=== PATIENT | male | born 1975 | race Caucasian/White ===

== ENCOUNTER 2016-05-12 | Emergency (ER) | payer OTHER, BC ==
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
== END 2016-05-12 16:22 | disposition home or self-care (01) ==
CPT/HCPCS: 99283

== ENCOUNTER → 2017-10-12 | Outpatient (CLI) | payer BC ==
--- NOTE | 2017-10-12 16:28 | CONS ---
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 The patient has loud snoring. He has witnessed apneas and feeling tired during the day. He has some degree of sleepiness with an Leighton score of 10. Does not fall asleep while driving. He does not fall asleep while doing his activities at work. He has never been involved in a motor vehicle accident because of feeling drowsy or sleepy. She goes to bed around 10:00 pm, wakes up 4:40 am in the morning. He averages around 5-6 hours of sleep. No naps during the day. Weight has been stable at 230 pounds. Sleeps on his side. Occasional nocturia. Occasional nocturnal heartburn. No family history of obstructive sleep apnea. PAST MEDICAL HISTORY: Negative. PAST SURGICAL HISTORY: Right ankle surgery and left shoulder surgery. DRUG ALLERGIES: PENICILLIN. OUTPATIENT MEDICATION LIST: Negative. SOCIAL HISTORY: Nonsmoker. Social alcohol drinker. No history of substance abuse. FAMILY HISTORY: Negative for sleep apnea. REVIEW OF SYSTEMS: 12-point review of system was done and positive findings are mentioned above in the history of present illness. No history of insomnia. No waking up choking or gasping for air. No grinding of the teeth. No sleepwalking or sleep talking. No restlessness in lower extremities. No anxiety or panic attacks. No depression. No claustrophobia. No sexual dysfunction. PHYSICAL EXAMINATION: His current vitals: Blood pressure is 129/71, pulse 67, respirations 16, temp 98.7, saturation 96% on room air. Neck size 18 and a quarter of an inch. Leighton score 10. BMI 34.8. General appearance: Calm, comfortable. Head is atraumatic, normocephalic. NECK: Supple. Mallampati class IV. There is no goiter or neck mass. LUNGS: Clear to auscultation. HEART: Sounds regular rate and rhythm. Normal S1, S2. No S3, S4. No murmurs. ABDOMEN: Soft, nontender. No organomegaly. EXTREMITIES: No edema. No cyanosis or clubbing. Skin is negative for any wounds or ulceration. IMPRESSION: 1. Obstructive sleep apnea clinically suspected, under investigation. The patient has loud snoring, witnessed apneas and increased fatigue and sleepiness with an Leighton score of 10. 2. Obesity BMI of 34.8. 3. Hypersomnia, Leighton score of 10. PLAN: 1. Encourage weight loss. 2. Avoid driving especially when feeling drowsy or sleepy. 3. Proceed with a home sleep study looking for any significant sleep breathing disorder/obstructive sleep apnea. 4. Will treat according to results of the sleep study. MMODL / IJN: [id number] /
== END | disposition home or self-care (01) ==
LOC: SLEEP 15:15
PROVIDERS: ATTEND Internal Medicine Critical Care Medicine
DX: G47.10 Hypersomnia, unspecified (principal); E66.9 Obesity, unspecified; R06.83 Snoring; R53.83 Other fatigue; Z88.0 Allergy status to penicillin; Z68.34 Body mass index [BMI] 34.0-34.9, adult
CPT/HCPCS: 99211

== ENCOUNTER → 2018-01-19 | Outpatient (CLI) | payer BC ==
--- NOTE | 2018-01-20 07:23 | US ---
EXAMINATION TYPE: US kidneys/renal and bladder DATE OF EXAM: 01/19/2018 COMPARISON: CT abdomen and pelvis September 19, 2015 CLINICAL HISTORY: R94.4 Abnormal Renal Function Tests. Microscopic hematuria EXAM MEASUREMENTS: Right Kidney: 11.4 x 5.5 x 5.2 cm Left Kidney: 11.3 x 5.8 x 4.9 cm Right Kidney: no evidence of hydronephrosis Left Kidney: no evidence of hydronephrosis Bladder: wnl Bilateral Jets seen: yes There is no evidence for hydronephrosis at this point in time. No nephrolithiasis is seen on images saved. No masses are identified. The urinary bladder is anechoic. Bilateral ureteral jets are seen . IMPRESSION: Unremarkable study. No significant finding is seen to account for patient's symptoms. If symptoms per sists further investigation with CT urogram may be warranted.
== END | disposition home or self-care (01) ==
LOC: RADUSWWP 15:52
PROVIDERS: ATTEND Internal Medicine
DX: R94.4 Abnormal results of kidney function studies (principal)
CPT/HCPCS: 76770

== ENCOUNTER 2021-09-27 08:54 | Emergency (ER) | payer BC ==
[2021-09-27 09:02] VITALS: TEMP 98.3
[2021-09-27] MEDS ORDERED: KETOROLAC 15 MG/ML 1 ML VIAL IM STA ×2 (09:12→10:38)
[2021-09-27] MEDS ORDERED: HYDROmorphone 1 MG/ML 1 ML SYRINGE IM STA ×2 (09:12→10:38)
--- NOTE | 2021-09-27 09:15 | ED ---
General Adult HPI - General Chief complaint: Back Pain/Injury Stated complaint: Back Pain Time Seen by Provider: 09/27/21 09:05 Source: patient, RN notes reviewed Mode of arrival: wheelchair Limitations: no limitations - History of Present Illness Initial comments: Patient is a pleasant 45-year-old male presenting to the emergency Department with low back discomfort. Patient does have some history of low back problems in the past and has seen chiropractor however does not have chronic significant pain. Patient was doing yard work 4 days ago with onset of symptoms. Patient saw urgent care 2 days ago and given muscle relaxer and steroids. No improvement of symptoms since that time. Patient did try some heat without improvement of symptoms following the onset. Patient bent over yesterday with increase discomfort. No abdominal pain. No loss of control of bowel or bladder. No leg weakness or paresthesia. Patient does have some discomfort that radiates to the left leg which has happened previously however previously was minimal. - Related Data Previous Rx's Medication Instructions Recorded HYDROcodone/APAP 5-325MG [[place] 1 tab PO Q4HR PRN 3 Days #18 tab 09/27/21 5-325] Allergies Allergy/AdvReac Type Severity Reaction Status Date / Time No Known Allergies Allergy Verified 09/27/21 09:00 Review of Systems ROS Statement: Those systems with pertinent positive or pertinent negative responses have been documented in the HPI. ROS Other: All systems not noted in ROS Statement are negative. Constitutional: Denies: fever Eyes: Denies: eye pain ENT: Denies: ear pain Respiratory: Denies: cough Cardiovascular: Denies: chest pain Endocrine: Denies: fatigue Gastrointestinal: Denies: abdominal pain Genitourinary: Denies: dysuria Musculoskeletal: Reports: as per HPI, back pain Skin: Denies: lesions Neurological: Denies: weakness, numbness, paresthesias Past Medical History Past Medical History: No Reported History History of Any Multi-Drug Resistant Organisms: None Reported Past Surgical History: Adenoidectomy Past Psychological History: No Psychological Hx Reported Smoking Status: Never smoker Past Alcohol Use History: Occasional Past Drug Use History: None Reported General Exam Limitations: no limitations General appearance: alert, in no apparent distress Head exam: Present: normocephalic Eye exam: Present: normal appearance Neck exam: Present: normal inspection Respiratory exam: Present: normal lung sounds bilaterally Cardiovascular Exam: Present: regular rate, normal rhythm Expanded Peripheral pulses: 2+: Posterior Tibialis (R), Posterior Tibialis (L), Dorsalis Pedis (R), Dorsalis Pedis (L) GI/Abdominal exam: Present: soft. Absent: distended, tenderness Extremities exam: Present: normal inspection Neurological exam: Present: alert. Absent: motor sensory deficit Expanded Sensory exam: Lower Extremity Light Touch: Normal Motor strength exam: RLE: 5, LLE: 5 Psychiatric exam: Present: normal affect, normal mood Skin exam: Present: normal color Course Vital Signs 09/27/21 09/27/21 09:00 10:02 Temperature 98.3 F Pulse Rate 72 72 Respiratory 16 18 Rate Blood Pressure 157/97 138/90 O2 Sat by Pulse 97 98 Oximetry - Reevaluation(s) Reevaluation #1: 09/27/21 10:38 Patient reevaluated and improved however still having moderate discomfort. Patient is receptive to repeat medication. Medical Decision Making - Medical Decision Making Patient again reevaluated and feeling better. Patient comfortable with discharge. Patient and family updated. Disposition Clinical Impression: Low back pain Disposition: HOME SELF-CARE Condition: Stable Instructions (If sedation given, give patient instructions): Acute Low Back Pain (ED) Additional Instructions: Please do follow-up with Dr. Briscoe in the next day or 2 for recheck. Continue steroids. Prescription has been sent to pharmacy. Return for increased pain, weakness, loss of control of bowel or bladder, worsening or change in symptoms or other concerns. Prescriptions: HYDROcodone/APAP 5-325MG [[place] 5-325] 1 tab PO Q4HR PRN 3 Days #18 tab PRN Reason: Pain Is patient prescribed a controlled substance at d/c from ED?: No Referrals: Rosalee Briscoe MD [Primary Care Provider] - 1-2 days Time of Disposition: 11:43
[2021-09-27 10:42] VITALS: RESP 18
[2021-09-27 12:20] VITALS: BP 140/88; PULSE 71
== END 2021-09-27 12:18 | disposition home or self-care (01) ==
LOC: EC 08:54
DX: M54.50 Low back pain, unspecified (principal)
CPT/HCPCS: 99283; 96372; J1170; J1885

== ENCOUNTER → 2022-09-17 | Outpatient (CLI) | payer BC ==
--- NOTE | 2022-09-18 10:45 | CT ---
EXAMINATION TYPE: CT abdomen pelvis w con DATE OF EXAM: 09/17/2022 COMPARISON: August 2015 INDICATION: GI issues DLP: 1833.4 mGycm, Automated exposure control for dose reduction was used. CONTRAST: 100 mL of Isovue 300. Study performed with Oral Contrast TECHNIQUE: Axial images were obtained from above the diaphragm to the pubic rami in the axial plane a t 5 mm thick sections. Reconstructed images are reviewed on the computer in the coronal plane. FINDINGS: Limited CT sections are obtained the lung bases. The lung bases are clear. CT ABDOMEN: Liver: Normal Spleen: Normal Pancreas: Normal Adrenal glands: The adrenal glands are normal. Gallbladder: Normal Kidneys: No masses are evident. No hydronephrosis is present. No cysts are present. Delayed images were obtained through the kidneys, which remain unremarkable. Aorta: Normal Inferior vena cava: Normal. CT PELVIS: Loops of bowel within the abdomen and pelvis are normal. The descending colon and sigmoid colon a re nondilated. Some mild wall thickening is not excluded. This could be due to incomplete distention. No oral contrast is present. Clinical consideration for colitis is recommended Appendix: Normal as visualized. Urinary bladder: Decompressed limiting evaluation Genitourinary structures: Prostate is somewhat prominent. 0Calcifications are present. Osseous structures: No suspicious lytic or sclerotic lesions are evident IMPRESSIONS: 1. Incomplete distention descending colon, possible wall thickening of the descending colon and sigm oid colon. Mild colitis could be considered.
== END | disposition home or self-care (01) ==
LOC: RADCTMAIN 08:23
PROVIDERS: ATTEND Internal Medicine
DX: K63.89 Other specified diseases of intestine (principal); K52.9 Noninfective gastroenteritis and colitis, unspecified; K92.2 Gastrointestinal hemorrhage, unspecified
CPT/HCPCS: 74177; Q9967

== ENCOUNTER 2022-09-29 06:03 | Day surgery (SDC) | payer BC ==
[2022-09-25 10:26] VITALS: BMI 34.7
[~2022-09-29 06:03] MED LIST: LACTATED RINGERS 1,000 ML IV SCH; LIDOCAINE 1% (10MG/ML) FOR IV START INTRADERMA PRN
[2022-09-29 06:35] VITALS: RESP 16; TEMP 97.1
[2022-09-29] MEDS ORDERED: LIDOCAINE 2% INJ 20 MG/ML (2 ML VIAL) ONE (07:00)
[2022-09-29] MEDS ORDERED: PROPOFOL 10 MG/ML 20 ML VIAL IV ONE (07:00)
--- NOTE | 2022-09-29 07:32 | P.PCN ---
Date of Procedure: 09/29/22 Procedure(s) Performed: Brief history: Patient is a pleasant 46-year-old white male scheduled for an elective upper endoscopy as well as colonoscopy as a part of evaluation of GERD and intermittent rectal bleeding Procedure performed: Esophagogastroduodenoscopy with biopsy Colonoscopy with biopsy Preoperative diagnosis: GERD/intermittent rectal bleeding Anesthesia: [facility] Procedure: After informed consent was obtained from the patient was brought into the endoscopy unit and IV sedation was administered by anesthesia under continuous monitoring. Initially upper endoscopy was done. The Olympus GF 160 video endoscope was inserted inserted into the mouth and esophagus intubated without any difficulty and was gradually advanced into the stomach and duodenum and carefully examined. The bulb and second part of the duodenum appeared normal. The scope was then withdrawn into the stomach adequately insufflated with air and upon careful examination the antrum had mild gastritis and biopsies were done from this area. Mucosa of the body, cardia and fundus appeared normal. The scope was then withdrawn into the esophagus. The GE junction was located at 40 cm to the incisors. It appeared regular with no erythema erosions or ulcerations. The mucosal folds in the mid and distal esophagus appeared slightly thickened with longitudinal ridges and furrows suspicious for eosinophilic esophagitis and biopsies were done from this area. Rest of the esophagus appeared normal. Patient tolerated the procedure well. At this time the patient continued to remain sedation. Initial digital rectal examination was normal. Olympus CF 160 video colonoscope was then inserted into the rectum and gradually advanced to the cecum without any difficulty. Careful examination was performed as the scope was gradually being withdrawn. The prep was excellent. The cecum, ascending colon, transverse colon, descending colon, sigmoid colon and rectum appeared normal. Retroflexion was performed in the rectum and no lesions were noted. Patient tolerated the procedure well. Impression: 1. Upper endoscopy revealed mild antral gastritis and thickened esophageal folds in the mid and distal esophagus suspicious for eosinophilic esophagitis 2. Colonoscopy revealed 3-4 mm sessile descending colon polyp status post-for absent small internal hemorrhoids Recommendations: Findings of this examination were discussed with the patient as well as his family. He was advised to follow with the biopsy results. If the biopsy report adenoma he can have a repeat colonoscopy in 5 years. In the meantime he was advised to be a high-fiber diet, take fiber supplements a regular basis and avoid straining and constipation.
[2022-09-29 07:59] VITALS: BP 147/87; PULSE 68
== END 2022-09-29 08:28 | disposition home or self-care (01) ==
LOC: ORWHC2ENDO 06:03
PROVIDERS: ATTEND Internal Medicine Gastroenterology
DX: D12.4 Benign neoplasm of descending colon (principal); K29.50 Unspecified chronic gastritis without bleeding; K21.9 Gastro-esophageal reflux disease without esophagitis; K62.5 Hemorrhage of anus and rectum; Z79.899 Other long term (current) drug therapy
CPT/HCPCS: 88305; 45380; 43239; J2704; J2001